=== PATIENT | male | born 1995 | race Caucasian/White ===

== ENCOUNTER → 2024-01-18 | Outpatient (CLI) | payer OTHER | LOC: M WHC 08:18 | PROVIDERS: ATTEND Physician Assistant | DX: N63.20 Unspecified lump in the left breast, unspecified quadrant (principal); N63.10 Unspecified lump in the right breast, unspecified quadrant; N62 Hypertrophy of breast | CPT/HCPCS: 76642; 77066; G0279 ==

== ENCOUNTER 2024-08-29 08:43 | Emergency (ER) | payer OTHER ==
[2024-08-29 10:29] LABS: BASO % 0.5 % (0.0-1.0); EOS % 0.3 % (0.0-3.0); HEMATOCRIT 46.4 % (42.0-52.0); HEMOGLOBIN 16.3 g/dl (13.5-17.5); LYMPH # 2.2 10^3/uL (1.5-5.0); LYMPH % 27.4 % (24.0-44.0); MEAN CORPUSCULAR HEMOGLOBIN 30.2 pg (27.0-33.0); MEAN CORPUSCULAR HGB CONC 35.1 g/dl (32.0-36.5); MEAN CORPUSCULAR VOLUME 86.1 fl (80.0-96.0); MONO # 0.6 10^3/uL (0.0-0.8); MONO % 7.8 % (2.0-8.0); NEUTROPHILS # 5.1 10^3/uL (1.5-8.5); NEUTROPHILS % 63.9 % (36.0-66.0); PLATELET COUNT, AUTOMATED 263 10^3/uL (150-450); RED BLOOD COUNT 5.39 10^6/uL (4.30-6.10); WHITE BLOOD COUNT 7.9 10^3/uL (4.0-10.0)
[2024-08-29 11:00] LABS: CK-MB VALUE MASS 2.5 NG/ML (<3.6)
[2024-08-29 11:01] LABS: BLOOD UREA NITROGEN 26 MG/DL (9-23); CALCIUM LEVEL 9.4 MG/DL (8.5-10.1); CARBON DIOXIDE LEVEL 28 MMOL/L (20-31); CHLORIDE LEVEL 102 MMOL/L (98-107); GLOMERULAR FILTRATION RATE > 60.0 (>60); GLUCOSE, FASTING 87 MG/DL (60-100); POTASSIUM SERUM 4.5 MMOL/L (3.5-5.1); SODIUM LEVEL 140 MMOL/L (136-145)
[2024-08-29 11:17] LABS: CPK CREATINE PHOSPHOKINASE 307 U/L (46-171); MB/CK RELATIVE INDEX 0.81 (< OR =4)
[2024-08-29] MEDS: KETOROLAC 30 MG/ML 1ML VIAL IV ONE (11:40)
[2024-08-29] MEDS: NS (Normal Saline) 0.9% 1,000 ML IV ONE (11:40)
[2024-08-29 12:06] LABS: CK-MB VALUE MASS 2.2 NG/ML (<3.6)
[2024-08-29 12:07] LABS: MB/CK RELATIVE INDEX 0.76 (< OR =4)
[2024-08-29] MEDS ORDERED: NAPR-837 PO (12:36)
[2024-08-29 12:53] VITALS: BP 121/77; TEMP 96.6; O2SAT 98
== END 2024-08-29 12:55 | disposition home or self-care (01) ==
LOC: M ED 08:43
DX: R07.9 Chest pain, unspecified (principal)
CPT/HCPCS: 71046; 80048; 82375; 82550; 82553; 84484; 85025; 85379; 93005; 93041; 94760; 96361; 96374; 99285; J1885

== ENCOUNTER 2024-09-02 09:39 | Emergency (ER) | payer OTHER ==
[~2024-09-02] VITALS: Ht 175.3 cm; Wt 101.8 kg
[~2024-09-02 09:39] MED LIST: NAPR-837 PO
[2024-09-02 12:10] LABS: BASO % 0.6 % (0.0-1.0); EOS # 0.1 10^3/uL (0.0-0.5); HEMATOCRIT 48.9 % (42.0-52.0); HEMOGLOBIN 16.3 g/dl (13.5-17.5); LYMPH # 2.3 10^3/uL (1.5-5.0); LYMPH % 36.6 % (24.0-44.0); MEAN CORPUSCULAR HEMOGLOBIN 29.2 pg (27.0-33.0); MEAN CORPUSCULAR HGB CONC 33.3 g/dl (32.0-36.5); MEAN CORPUSCULAR VOLUME 87.5 fl (80.0-96.0); MONO # 0.6 10^3/uL (0.0-0.8); MONO % 9.7 % (2.0-8.0); NEUTROPHILS # 3.3 10^3/uL (1.5-8.5); NEUTROPHILS % 51.8 % (36.0-66.0); PLATELET COUNT, AUTOMATED 280 10^3/uL (150-450); RED BLOOD COUNT 5.59 10^6/uL (4.30-6.10); WHITE BLOOD COUNT 6.3 10^3/uL (4.0-10.0)
[2024-09-02 12:30] LABS: LIPASE 28 U/L (12-53)
[2024-09-02 12:31] LABS: CPK CREATINE PHOSPHOKINASE 107 U/L (46-171); MB/CK RELATIVE INDEX 0.93 (< OR =4)
[2024-09-02 12:32] LABS: ALBUMIN 4.3 G/DL (3.2-5.2); ALKALINE PHOSPHATASE 67 U/L (40-129); ALT/SGPT 65 U/L (7.0-40); AST/SGOT 18 U/L (<34); BILIRUBIN,DIRECT 0.3 MG/DL (<0.4); BILIRUBIN,TOTAL 0.9 MG/DL (0.3-1.2); BLOOD UREA NITROGEN 21 MG/DL (9-23); CALCIUM LEVEL 9.9 MG/DL (8.5-10.1); CARBON DIOXIDE LEVEL 29 MMOL/L (20-31); CHLORIDE LEVEL 106 MMOL/L (98-107); GLOMERULAR FILTRATION RATE > 60.0 (>60); GLUCOSE, FASTING 82 MG/DL (60-100); POTASSIUM SERUM 5.1 MMOL/L (3.5-5.1); SODIUM LEVEL 139 MMOL/L (136-145); TOTAL PROTEIN 7.3 G/DL (5.7-8.2)
[2024-09-02 14:25] LABS: CK-MB VALUE MASS < 1.0 NG/ML (<3.6)
[2024-09-02] MEDS ORDERED: ISOVUE-370 76% 100ML VIAL As Ordered ONE (14:25)
[2024-09-02 14:30] LABS: CPK CREATINE PHOSPHOKINASE 102 U/L (46-171); MB/CK RELATIVE INDEX 0.98 (< OR =4)
[2024-09-02 15:14] VITALS: BP 122/71; TEMP 97; O2SAT 98
== END 2024-09-02 15:18 | disposition home or self-care (01) ==
LOC: M ED 09:39
DX: R07.9 Chest pain, unspecified (principal); Z79.1 Long term (current) use of non-steroidal anti-inflammatories (NSAID)
CPT/HCPCS: 36415; 71045; 71275; 80048; 80076; 82550; 82553; 83690; 84484; 85025; 93005; 99284; Q9967

== ENCOUNTER → 2024-09-12 | Outpatient (CLI) | payer OTHER | LOC: M PLAIMG 07:20 | PROVIDERS: ATTEND Physician Assistant | DX: R07.9 Chest pain, unspecified (principal); N62 Hypertrophy of breast ==